=== PATIENT | female | born 1960 | race Caucasian/White ===

== ENCOUNTER 2023-12-12 06:38 | Day surgery (SDC) | payer MEDICARE, MEDICAID, SELFPAY ==
[2023-12-07 13:58] VITALS: BMI 26.1
[2023-12-12 07:17] VITALS: BP 129/78; PULSE 56; RESP 16; TEMP 36.8; O2SAT 94
[2023-12-12] MEDS: Tetracaine HCl/PF 0.5% Oph Sol 4 ML DROPS 1 DROP EYE-LEFT (07:20)
[2023-12-12] MEDS: Tropicamide 1 % Ophth Sol 3 ML BTL 1 DROP EYE-LEFT ×3 (07:22→07:28)
[2023-12-12] MEDS: Cyclopentolate 1 % Ophth Sol 2 ML DRPBTL 1 DROP EYE-LEFT ×3 (07:22→07:28)
[2023-12-12] MEDS: Ketorolac Tromethamine 0.5% Op 10 ML DROPS 1 DROP EYE-LEFT ×3 (07:23→07:29)
[2023-12-12] MEDS: Phenylephrine HCL 2.5% Oph SoL 2 ML BOTTLE 1 DROP EYE-LEFT ×3 (07:24→07:29)
--- NOTE | 2023-12-12 07:25 | MHC.SHP ---
Pre-Procedural Eval Section A - 24 Hr Update-Section A only Date of Service: 12/12/23 The patient is an INPATIENT: No Changes since office visit: No Cold of Flu in the past 2 weeks, No New Medical Problems, No Changes in Medication and No Patient answered all questions The patient has been examined within 24 hours of the surgical procedure. The History & Physical has been completed within 30 days and I have reviewed it.: Yes Section B - Complete if H&P > 30 days Chief Complaint: Age-related nuclear cataract, left eye Allergies: Allergies Allergy/AdvReac Type Severity Reaction Status Date / Time adhesive Allergy Itching Verified 12/07/23 13:50 citalopram Allergy Unknown Verified 12/07/23 13:50 fluoxetine Allergy Unknown Verified 12/07/23 13:50 lisinopril Allergy Cough Verified 12/07/23 13:50 Sulfa (Sulfonamide Allergy Angioedema Verified 12/07/23 13:50 Antibiotics) Plan Diagnosis/Plan: Unchanged I have reviewed the history and physical and performed a pertinent physical examination on my patient. No changes have occurred unless specified. Time Spent With Patient Time: Total time managing care of this patient today ____ minutes.
[2023-12-12] MEDS: Lactated Ringers 500 ML 50 ML IV (07:31)
--- NOTE | 2023-12-12 08:28 | P.CONAN_ITS ---
FORM[facility]LY [facility], 1928–1983 Past Medical History Medical History GERD (gastroesophageal reflux disease) Genital herpes Depression Lumbar post-laminectomy syndrome Chronic, continuous use of opioids Fibromyalgia Seasonal rhinitis Asthma HTN (hypertension) Surgical History Surgical History (Updated 12/12/23 @ 07:13 by Sis Marquez RN) History of surgery History of surgery History of colonoscopy Hx of breast reduction, elective No pertinent past surgical history History of Problems with Anesthesia: No Social History Social History Patient Tobacco Use Status: Never used Tobacco Use of substances other than those prescribed or required for medical reasons: No Are you DNR?: No Advance Directives: No Advance Directives Information Provided: Yes Advance Directives on File: No Recently lost weight without trying: No Eating poorly because of decreased appetite: No Nutrition Risks: No Nutritional Risk Patient : No : No Meds Allergies Allergy/AdvReac Type Severity Reaction Status Date / Time adhesive Allergy Itching Verified 12/07/23 13:50 citalopram Allergy Unknown Verified 12/07/23 13:50 fluoxetine Allergy Unknown Verified 12/07/23 13:50 lisinopril Allergy Cough Verified 12/07/23 13:50 Sulfa (Sulfonamide Allergy Angioedema Verified 12/07/23 13:50 Antibiotics) Active Medications: Current Medications Povidone Iodine (Povidone Iodine 5 % Ophth Soln 30 Ml Bottle) 1 appl EYE-LEFT PREOP PRN PRN Reason: Pre-Op Surgical Implant Prophy Home Medications ?Medication ?Instructions ?Recorded ?Confirmed ?Last Taken ?Type albuterol sulfate 90 mcg/actuation inhalation 12/07/23 Unknown History aerosol inhaler carisoprodol 350 mg tablet 350 mg PO BID 12/07/23 12/07/23 Unknown History cetirizine 10 mg tablet 10 mg PO DAILY 12/07/23 12/07/23 12/12/23 History duloxetine 60 mg capsule,delayed 60 mg PO DAILY 12/07/23 12/07/23 12/12/23 History release gabapentin 800 mg tablet 800 mg PO BID 12/07/23 12/07/23 12/12/23 History hydrochlorothiazide 25 mg tablet 25 mg PO DAILY 12/07/23 12/07/23 Unknown History losartan 100 mg tablet 100 mg PO DAILY 12/07/23 12/07/23 Unknown History mometasone 50 mcg/actuation nasal 2 spray intranasal DAILY 12/07/23 12/07/23 Unknown History spray omeprazole 20 mg capsule,delayed 20 mg PO DAILY 12/07/23 12/07/23 12/12/23 History release oxycodone-acetaminophen 7.5 mg-325 1 tab PO Q4H PRN Pain 12/07/23 12/07/23 Unknown History mg tablet valacyclovir 1 gram tablet 1,000 mg PO DAILY 12/07/23 12/07/23 Unknown History Exam Height,Weight and Vital Signs: Height 5 ft 0.98 in Weight 62.7 kg Last Vital Signs Temp 98.3 F 12/12/23 07:17 Pulse 56 12/12/23 07:17 Resp 16 12/12/23 07:17 BP 129/78 12/12/23 07:17 Pulse Ox 94 12/12/23 07:17 O2 Del Method Room Air 12/12/23 07:17 Airway Mallampati Class: II TM Dist: >3cm Neck ROM: Full Loose/Missing/Broken Teeth: No Heart: RRR Lungs: CTA Assessment and Plan Assessment Anesthesia Assessment: Anesthesia Plan Discussed and Chart Reviewed Final Anesthetic Review History of Problems with Anesthesia: No NPO: Yes ASA Class: II Final Preanesthetic Review: Meds/Allgs Chart Reviewed, Consent Obtained/Reviewed and Anes Risks/Benef Reviewed Patient Risk: Low Procedure Risk: Low Anesthetic Plan Anesthetic Plan: MAC: Disposition: Standard PACU
--- NOTE | 2023-12-12 08:58 | HO.PNOPHT ---
Ophthalmology Procedure Procedure Date of Service: 12/12/23 Ophthalmology Viscoelastic: Healon Duet Dual Pack Pro Ophthalmology Lenses: IOL Acrysof MP - MA60AC (17.5) Procedure Notes: PREOPERATIVE DIAGNOSIS: Decreased visual acuity left eye secondary to cataract POSTOPERATIVE DIAGNOSIS: Same PROCEDURE: Left cataract extraction with intraocular lens insertion SURGEON: Duong Bee M.D. ANESTHESIA: Topical/MAC ESTIMATED BLOOD LOSS: None COMPLICATIONS: None After obtaining informed consent, the patient was brought to the operation room suite and placed in the supine position. After adequate sedation per anesthesia, topical drops of Tetracaine were given to the left eye. The eye was then prepped and draped in the usual sterile fashion. The operating room microscope was then positioned over the operative eye and a lid speculum placed. A paracentesis was created. Viscoelastic was then instilled into the anterior chamber. A three plane incision was then created temporally, utilizing a 2.85 mm keratome. Capsulotomy forceps were then utilized to create a circular tear capsulotomy. Hydrodissection and hydrodelineation were carried out until adequate mobilization of the nucleus occurred. Phacoemulsification was then utilized to remove the dense central nucleus followed by removal of the cortical material utilizing the automated aspiration irrigation unit. Viscoat elastic was instilled into the posterior capsular bag followed by placement of a posterior chamber intraocular lens without difficulty. The residual Viscoat elastic was then removed utilizing the automated IA machine. The wound was check and found to be watertight. The patient tolerated the procedure well and the lid speculum was removed. Intracameral injection of Vigamox 0.1 mL followed by a subtenon injection of Kenalog-40 0.2 mL were administered. The patient will be seen in the a.m.
[2023-12-12 09:27] VITALS: BP 128/74; PULSE 54; RESP 18; TEMP 36.3; O2SAT 96
== END 2023-12-12 09:39 | disposition home or self-care (01) ==
PROVIDERS: PCP Pediatrics; Visit Provider Ophthalmology
PROC: (CPT 66985; principal; 2023-12-12 08:50)
DX: H25.12 Age-related nuclear cataract, left eye (principal); H54.7 Unspecified visual loss; H18.413 Arcus senilis, bilateral; H35.54 Dystrophies primarily involving the retinal pigment epithelium; H04.123 Dry eye syndrome of bilateral lacrimal glands; I10 Essential (primary) hypertension; J30.2 Other seasonal allergic rhinitis; J45.20 Mild intermittent asthma, uncomplicated; M96.1 Postlaminectomy syndrome, not elsewhere classified; M79.7 Fibromyalgia; F11.20 Opioid dependence, uncomplicated; Z79.899 Other long term (current) drug therapy; Z98.890 Other specified postprocedural states; Z88.2 Allergy status to sulfonamides
CPT/HCPCS: 66984; J2250; J3010; J3301; V2630

== ENCOUNTER 2023-12-26 06:30 | Day surgery (SDC) | payer MEDICARE, MEDICAID, SELFPAY ==
[2023-12-07 14:06] VITALS: BMI 26.1
--- NOTE | 2023-12-22 14:16 | HO.ANESPROP2 ---
HPI - Anesthesia Eval Consult details Narrative: 63yo F for Right Cataract Extraction IOL Insertion Left eye 12/11: Fent 50, Midaz 2 PMFSH Past Medical History Medical History GERD (gastroesophageal reflux disease) Genital herpes Depression Lumbar post-laminectomy syndrome Chronic, continuous use of opioids Fibromyalgia Seasonal rhinitis Asthma HTN (hypertension) Surgical History Surgical History History of surgery History of surgery History of colonoscopy Hx of breast reduction, elective No pertinent past surgical history History of Problems with Anesthesia: No Social History Social History Patient Tobacco Use Status: Never used Tobacco Use of substances other than those prescribed or required for medical reasons: No Are you DNR?: No Advance Directives: No Advance Directives Information Provided: Yes Advance Directives on File: No Recently lost weight without trying: No Nutrition Risks: No Nutritional Risk Patient : No : No Meds Allergies Allergy/AdvReac Type Severity Reaction Status Date / Time adhesive Allergy Itching Verified 12/26/23 06:40 citalopram Allergy Unknown Verified 12/26/23 06:40 fluoxetine Allergy Unknown Verified 12/26/23 06:40 lisinopril Allergy Cough Verified 12/26/23 06:40 Sulfa (Sulfonamide Allergy Angioedema Verified 12/26/23 06:40 Antibiotics) Home Medications ?Medication ?Instructions ?Recorded ?Confirmed ?Last Taken ?Type albuterol sulfate 90 mcg/actuation inhalation 12/07/23 Unknown History aerosol inhaler carisoprodol 350 mg tablet 350 mg PO BID 12/07/23 12/07/23 Unknown History cetirizine 10 mg tablet 10 mg PO DAILY 12/07/23 12/26/23 12/26/23 History duloxetine 60 mg capsule,delayed 60 mg PO DAILY 12/07/23 12/26/23 12/26/23 History release gabapentin 800 mg tablet 800 mg PO BID 12/07/23 12/26/23 12/26/23 History hydrochlorothiazide 25 mg tablet 25 mg PO DAILY 12/07/23 12/07/23 Unknown History losartan 100 mg tablet 100 mg PO DAILY 12/07/23 12/07/23 Unknown History mometasone 50 mcg/actuation nasal 2 spray intranasal DAILY 12/07/23 12/07/23 Unknown History spray omeprazole 20 mg capsule,delayed 20 mg PO DAILY 12/07/23 12/26/23 12/26/23 History release oxycodone-acetaminophen 7.5 mg-325 1 tab PO Q4H PRN Pain 12/07/23 12/07/23 Unknown History mg tablet valacyclovir 1 gram tablet 1,000 mg PO DAILY 12/07/23 12/07/23 Unknown History Exam Height,Weight and Vital Signs: Height 5 ft 0.98 in Weight 62.7 kg Assessment and Plan Assessment Anesthesia Assessment: Chart Reviewed Final Anesthetic Review History of Problems with Anesthesia: No
[2023-12-26] MEDS: Tetracaine HCl/PF 0.5% Oph Sol 4 ML DROPS 1 DROP EYE-RIGHT (06:45)
[2023-12-26] MEDS: Cyclopentolate 1 % Ophth Sol 2 ML DRPBTL 1 DROP EYE-RIGHT ×3 (06:46→07:02)
[2023-12-26] MEDS: Tropicamide 1 % Ophth Sol 3 ML BTL 1 DROP EYE-RIGHT ×3 (06:48→07:04)
[2023-12-26 06:49] VITALS: BP 141/71; PULSE 60; RESP 16; TEMP 36.3; O2SAT 97
[2023-12-26] MEDS: Phenylephrine HCL 2.5% Oph SoL 2 ML BOTTLE 1 DROP EYE-RIGHT ×3 (06:50→07:06)
[2023-12-26] MEDS: Lactated Ringers 500 ML 50 ML IV (06:51)
[2023-12-26] MEDS: Ketorolac Tromethamine 0.5% Op 10 ML DROPS 1 DROP EYE-RIGHT ×3 (06:52→07:08)
--- NOTE | 2023-12-26 07:31 | HO.ANESPROP2 ---
[facility] Past Medical History Medical History GERD (gastroesophageal reflux disease) Genital herpes Depression Lumbar post-laminectomy syndrome Chronic, continuous use of opioids Fibromyalgia Seasonal rhinitis Asthma HTN (hypertension) Functional capacity: independent ambulation Patient : No Family History Family history of problems with anesthesia: No Surgical History Surgical History History of surgery History of surgery History of colonoscopy Hx of breast reduction, elective No pertinent past surgical history History of Problems with Anesthesia: No Social History Social History Patient Tobacco Use Status: Never used Tobacco Use of substances other than those prescribed or required for medical reasons: No Are you DNR?: No Advance Directives: No Advance Directives Information Provided: Yes Advance Directives on File: No Recently lost weight without trying: No Nutrition Risks: No Nutritional Risk Patient : No : No Meds Allergies Allergy/AdvReac Type Severity Reaction Status Date / Time adhesive Allergy Itching Verified 12/26/23 06:40 citalopram Allergy Unknown Verified 12/26/23 06:40 fluoxetine Allergy Unknown Verified 12/26/23 06:40 lisinopril Allergy Cough Verified 12/26/23 06:40 Sulfa (Sulfonamide Allergy Angioedema Verified 12/26/23 06:40 Antibiotics) Active Medications: Current Medications Albuterol Sulfate (Albuterol Sulfate (0.083%) 2.5 Mg/3 Ml Vial.Neb) 2.5 mg INHALE ONCE PRN PRN Reason: Shortness of Breath/Wheezing Lactated Ringer's (Lr) 500 mls @ 50 mls/hr IV .Q10H SIMONA Stop: 12/26/23 16:29 Last Admin: 12/26/23 06:51 Dose: 50 mls/hr Povidone Iodine (Povidone Iodine 5 % Ophth Soln 30 Ml Bottle) 1 appl EYE-RIGHT PREOP PRN PRN Reason: Pre-Op Surgical Implant Prophy Home Medications ?Medication ?Instructions ?Recorded ?Confirmed ?Last Taken ?Type albuterol sulfate 90 mcg/actuation inhalation 12/07/23 Unknown History aerosol inhaler carisoprodol 350 mg tablet 350 mg PO BID 12/07/23 12/07/23 Unknown History cetirizine 10 mg tablet 10 mg PO DAILY 12/07/23 12/07/23 12/12/23 History duloxetine 60 mg capsule,delayed 60 mg PO DAILY 12/07/23 12/07/23 12/12/23 History release gabapentin 800 mg tablet 800 mg PO BID 12/07/23 12/07/23 12/12/23 History hydrochlorothiazide 25 mg tablet 25 mg PO DAILY 12/07/23 12/07/23 Unknown History losartan 100 mg tablet 100 mg PO DAILY 12/07/23 12/07/23 Unknown History mometasone 50 mcg/actuation nasal 2 spray intranasal DAILY 12/07/23 12/07/23 Unknown History spray omeprazole 20 mg capsule,delayed 20 mg PO DAILY 12/07/23 12/07/23 12/12/23 History release oxycodone-acetaminophen 7.5 mg-325 1 tab PO Q4H PRN Pain 12/07/23 12/07/23 Unknown History mg tablet valacyclovir 1 gram tablet 1,000 mg PO DAILY 12/07/23 12/07/23 Unknown History Exam Height,Weight and Vital Signs: Height 5 ft 0.98 in Weight 62.7 kg Last Vital Signs Temp 97.4 F 12/26/23 06:49 Pulse 60 12/26/23 06:49 Resp 16 12/26/23 06:49 BP 141/71 H 12/26/23 06:49 Pulse Ox 97 12/26/23 06:49 O2 Del Method Room Air 12/26/23 06:49 Airway Mallampati Class: II TM Dist: >3cm Neck ROM: Full Heart: RRR Lungs: CTA Assessment and Plan Assessment Anesthesia Assessment: Anesthesia Plan Discussed and Chart Reviewed Final Anesthetic Review Family History of Problems with Anesthesia: No History of Problems with Anesthesia: No NPO: Yes ASA Class: II Final Preanesthetic Review: Meds/Allgs Chart Reviewed, Consent Obtained/Reviewed and Anes Risks/Benef Reviewed Patient Risk: Low Procedure Risk: Low Anesthetic Plan Anesthetic Plan: MAC: Disposition: Standard PACU
--- NOTE | 2023-12-26 07:32 | MHC.SHP ---
Pre-Procedural Eval Section A - 24 Hr Update-Section A only Date of Service: 12/26/23 The patient is an INPATIENT: No Changes since office visit: No Cold of Flu in the past 2 weeks, No New Medical Problems, No Changes in Medication and No Patient answered all questions The patient has been examined within 24 hours of the surgical procedure. The History & Physical has been completed within 30 days and I have reviewed it.: Yes Section B - Complete if H&P > 30 days Chief Complaint: Age-related nuclear cataract, right eye Allergies: Allergies Allergy/AdvReac Type Severity Reaction Status Date / Time adhesive Allergy Itching Verified 12/26/23 06:40 citalopram Allergy Unknown Verified 12/26/23 06:40 fluoxetine Allergy Unknown Verified 12/26/23 06:40 lisinopril Allergy Cough Verified 12/26/23 06:40 Sulfa (Sulfonamide Allergy Angioedema Verified 12/26/23 06:40 Antibiotics) Plan Diagnosis/Plan: Unchanged I have reviewed the history and physical and performed a pertinent physical examination on my patient. No changes have occurred unless specified. Time Spent With Patient Time: Total time managing care of this patient today ____ minutes.
--- NOTE | 2023-12-26 07:33 | P.PCNO_ITS ---
Ophthalmology Procedure Procedure Date of Service: 12/26/23 Ophthalmology Viscoelastic: Healon Duet Dual Pack Pro Ophthalmology Lenses: IOL Acrysof MP - MA60AC (17) Procedure Notes: PREOPERATIVE DIAGNOSIS: Decreased visual acuity right eye secondary to cataract POSTOPERATIVE DIAGNOSIS: Same PROCEDURE: Right cataract extraction with intraocular lens insertion SURGEON: Duong Bee M.D. ANESTHESIA: Topical/MAC ESTIMATED BLOOD LOSS: None COMPLICATIONS: None After obtaining informed consent, the patient was brought to the operating room suite and placed in the supine position. After adequate sedation per anesthesia, topical drops of Tetracaine were given to the right eye. The eye was then prepped and draped in the usual sterile fashion. The operating room microscope was then positioned over the operative eye and a lid speculum placed. A paracentesis was created. Viscoelastic was then instilled into the anterior chamber. A three plane incision was then created temporally, utilizing a 2.85 mm keratome. Capsulotomy forceps were then utilized to create a circular tear capsulotomy. Hydrodissection and hydrodelineation were carried out until adequate mobilization of the nucleus occurred. Phacoemulsification was then utilized to remove the dense central nucl eus followed by removal of the cortical material utilizing the automated aspiration irrigation unit. Viscoelastic was instilled into the posterior capsular bag followed by placement of a posterior chamber intraocular lens without difficulty. The residual Viscoelastic was then removed utilizing the automated IA machine. The wound was checked and found to be watertight. The patient tolerated the procedure well and the lid speculum was removed. Intracameral injection of Vigamox 0.1 mL followed by a subtenon injection of Kenalog-40 0.2 mL were administered. The patient will be seen in the a.m.
[2023-12-26 08:01] VITALS: BP 128/67; PULSE 53; RESP 17; TEMP 36.4; O2SAT 97
--- NOTE | 2023-12-26 08:14 | HO.POSTANES ---
Post Anesthesia Evaluation Post Anesthesia Evaluation Date of Service: 12/26/23 Vital Signs: Vital Signs Temp Pulse Resp BP Pulse Ox O2 Del Method 12/26/23 08:01 97.5 F 53 17 128/67 97 Room Air 12/26/23 06:49 97.4 F 60 16 141/71 H 97 Room Air Anesthesia: Monitored Mental Status: Awake Pain Control: Satisfactory Nausea/Vomiting: None Hydration: Adequate Anesthesia-Related Issues: No Anes. Related Issues
== END 2023-12-26 08:05 | disposition home or self-care (01) ==
PROVIDERS: PCP Pediatrics; Visit Provider Ophthalmology
PROC: (CPT 66985; principal; 2023-12-26 07:30)
DX: H25.11 Age-related nuclear cataract, right eye (principal); H54.7 Unspecified visual loss; H35.54 Dystrophies primarily involving the retinal pigment epithelium; H18.413 Arcus senilis, bilateral; H04.123 Dry eye syndrome of bilateral lacrimal glands; I10 Essential (primary) hypertension; J45.20 Mild intermittent asthma, uncomplicated; M79.7 Fibromyalgia; M54.50 Low back pain, unspecified; M96.1 Postlaminectomy syndrome, not elsewhere classified; Z79.891 Long term (current) use of opiate analgesic; Z79.899 Other long term (current) drug therapy; Z88.2 Allergy status to sulfonamides
CPT/HCPCS: 66984; J2250; J3010; J3301; V2630